=== PATIENT | male | born 1995 | race Caucasian/White ===

== ENCOUNTER 2023-01-27 17:15 | Emergency (ER) | payer OTHER ==
[2023-01-27 17:37] VITALS: BP 92/59; PULSE 74; RESP 18; TEMP 98; BMI 32.3
== END 2023-01-27 20:59 | disposition home or self-care (01) ==
LOC: JER 17:15
DX: R51.9 Headache, unspecified (principal); R42 Dizziness and giddiness; E78.5 Hyperlipidemia, unspecified; T50.905A Adverse effect of unspecified drugs, medicaments and biological substances, initial encounter
CPT/HCPCS: 82962; 99282-25

== ENCOUNTER 2023-12-03 04:34 | Day surgery (SDC) | payer OTHER ==
[2023-11-29 14:05] VITALS: BMI 30.9
[2023-12-03 09:48] VITALS: TEMP 98.7
[2023-12-03 10:52] VITALS: BP 117/71; PULSE 62; RESP 20
== END 2023-12-03 10:50 | disposition home or self-care (01) ==
LOC: JASU-ENDO 04:34
PROVIDERS: ATTEND Internal Medicine Gastroenterology
PROC: 0DB78ZX Excision of Stomach, Pylorus, Via Natural or Artificial Opening Endoscopic, Diagnostic (ICD-10-PCS; 2023-12-03)
PROC: 0DB68ZX Excision of Stomach, Via Natural or Artificial Opening Endoscopic, Diagnostic (ICD-10-PCS; principal; 2023-12-03 11:45)
DX: K29.50 Unspecified chronic gastritis without bleeding (principal)
CPT/HCPCS: 88305-TC; 88342-TC

== ENCOUNTER 2024-08-13 07:26 | Emergency (ER) | payer OTHER ==
[2024-08-13 07:41] VITALS: BP 133/67; PULSE 83; RESP 17; TEMP 97.9; BMI 38.6
[2024-08-13] MEDS ORDERED: guaiFENesin/D-METHORPHAN HB 10 ML UNIT-DOSE CUPS ONE (08:04)
[2024-08-13] MEDS ORDERED: ALBUTEROL SO4 2.5/IPRATROPIUM 0.5 INH SOL 3 ML VIAL.NEB. NEB ONE (08:04)
[2024-08-13] MEDS: guaiFENesin/D-METHORPHAN HB 10 ML UNIT-DOSE CUPS PO ONE (08:07)
[2024-08-13] MEDS: ALBUTEROL SO4 2.5/IPRATROPIUM 0.5 INH SOL 3 ML VIAL.NEB. NEB ONE (08:10)
== END 2024-08-13 09:50 | disposition home or self-care (01) ==
LOC: JERFT 07:26
PROC: 3E0F7GC Introduction of Other Therapeutic Substance into Respiratory Tract, Via Natural or Artificial Opening (ICD-10-PCS; principal; 2024-08-13)
DX: J40 Bronchitis, not specified as acute or chronic (principal); R05.9 Cough, unspecified; R09.81 Nasal congestion
CPT/HCPCS: 71046-TC-FY; 99284-25